=== PATIENT | female | born 1975 | race Caucasian/White ===

== ENCOUNTER 2017-12-16 09:46 | Outpatient (CLI) | payer BC ==
--- NOTE | 2017-12-16 12:10 | Cat Scan Report ---
CT HEAD WITHOUT CONTRAST: HISTORY: Migraine headaches with aura. TECHNIQUE: Sequential 2.5mm CT images. COMPARISON: none. FINDINGS: Cerebral Parenchyma: Within normal limits. Cerebellum: Within normal limits. Brainstem: Within normal limits. Ventricles: Normal. Sella: Normal. Extra-axial spaces: Normal. Basal Cisterns: Normal. Intracranial Hemorrhage: None. Midline Shift: None. Calvarium: Normal. Sinuses: Normal. Mastoid Air Cells: Normal. Visualized Orbits: Normal. IMPRESSION: Cranial CT scan within normal limits.
== END 2017-12-16 09:47 | disposition home or self-care (01) ==
LOC: MAMMO 09:46
PROVIDERS: ATTEND Internal Medicine
DX: G43.101 Migraine with aura, not intractable, with status migrainosus (principal)
CPT/HCPCS: 70450